=== PATIENT | female | born 1980 | race Caucasian/White ===

== ENCOUNTER 2018-11-19 18:08 | Emergency (ER) | payer BC ==
[2018-11-19] MEDS ORDERED: ALBUTEROL (0.5% CONCENTRATED) 2.5 MG/0.5 ML VIAL.NEB INH ONE (18:27)
[2018-11-19] MEDS ORDERED: IPRATROPIUM/ALBUTEROL (0.5MG/3MG) NEB INH ONE (18:27)
--- NOTE | 2018-11-19 18:38 | Emergency Department Record ---
History of Present Illness - General Chief Complaint: Cough Stated Complaint: COUGH Time Seen by Provider: 11/19/18 18:20 Source: Patient Mode of Arrival: Ambulatory Limitations: No limitations - History of Present Illness Initial Comments: The patient is here due to intermittent coughing, congestion and wheezing for 6- 7 weeks. She has been to the urgent care twice for it. The first time she was placed on a Zpak and the 2nd an inhaller and steroids and she was told she had asthma. Today the coughing and wheezing worsened so she came to the ER. The patient denies any CP, fever, pleuritic pain, sputum production, leg pain or swelling. She does not smoke and is not on OCP's. The patient had audible wheezing when she presented to the ED and received an Duoneb tx after being placed in the room. MD Complaint: Cough Onset/Timin -: Week(s) Severity: Moderate - Related Data Home Medications Medication Instructions Recorded Confirmed Last Taken Bupropion HCl [Wellbutrin Xl] 300 mg PO DAILY 11/19/18 11/19/18 11/18/18 Buspirone HCl [Buspar] 10 mg PO DAILY 11/19/18 11/19/18 11/18/18 Levothyroxine Sodium [Synthroid] 100 mcg PO DAILY 11/19/18 11/19/18 11/18/18 Previous Rx's Medication Instructions Recorded Prednisone [Prednisone 20Mg] 40 mg PO DAILY #8 tab 11/19/18 Allergies Allergy/AdvReac Type Severity Reaction Status Date / Time Penicillins Allergy HIVES Verified 11/19/18 18:19 Travel Screening - Travel/Exposure Within Last 30 Days Have you traveled within the last 30 days?: Yes Location Detail:: [place] - Travel/Exposure Within Last Year Have you traveled outside the [place] in the last year?: Yes Location Detail:: [place] - Additonal Travel Details Have you been exposed to anyone with a communicable illness?: No - Travel Symptoms Symptom Screening: None Review of Systems Constitutional: Denies: Chills, Fever Eyes: Denies: Eye discharge ENT: Reports: Congestion Respiratory: Reports: Cough, Dyspnea, Wheezes Cardiovascular: Denies: Arrhythmia, Chest pain Past Medical History - SOCIAL HISTORY Smoking Status: Never smoker Alcohol Use: None Drug Use: None - RESPIRATORY Hx Respiratory Disorders: Yes Hx Asthma: Yes (excercise induced) Hx Bronchitis: Yes - CARDIOVASCULAR Hx Cardio Disorders: No - NEURO Hx Neuro Disorders: No - GI Hx GI Disorders: No - Hx Genitourinary Disorders: No - ENDOCRINE Hx Endocrine Disorders: Yes Hx Diabetes: No Hx Thyroid Disease: Yes - MUSCULOSKELETAL Hx Musculoskeletal Disorders: No - PSYCH Hx Psych Problems: Yes Hx Depression: Yes - HEMATOLOGY/ONCOLOGY Hx Hematology/Oncology Disorders: No Family Medical History Any Significant Family History?: No Physical Exam - General General Appearance: Alert, Oriented x3, Cooperative, No acute distress - Head Head exam: Atraumatic, Normocephalic, Normal inspection - Eye Eye exam: Normal appearance, PERRL, EOMI - ENT Throat exam: Normal inspection. negative: Tonsillar erythema, Tonsillar exudate - Neck Neck exam: Normal inspection, Full ROM. negative: Lymphadenopathy, Tenderness - Respiratory Respiratory exam: Normal lung sounds bilaterally (The lungs are very clear bilaterally with no wheezing or rhonchi. The patient was examined AFTER a Duoneb tx.). negative: Accessory muscle use, Decreased breath sounds, Prolonged expiratory, Respiratory distress, Rhonchi, Stridor, Wheezes - Cardiovascular Cardiovascular Exam: Regular rate, Normal rhythm, Normal heart sounds. negative : Diastolic murmur, Systolic murmur - GI/Abdominal GI/Abdominal exam: Soft, Normal bowel sounds. negative: Tenderness - Extremities Extremities exam: Normal inspection, Full ROM, Normal capillary refill. negative: Calf tenderness, Pedal edema, Tenderness - Neurological Neurological exam: Alert. negative: Motor sensory deficit Course Vital Signs 11/19/18 11/19/18 18:11 18:21 Temperature 98.6 F Pulse Rate 124 H 105 H Respiratory 22 20 Rate Blood Pressure 152/86 Pulse Ox 98 99 - Reevaluation(s) Reevaluation #1: The patient is doing very well at this time and continues to feel back to normal. She states her wheezing and LEENA have resolved and she is feeling MUCH better. On exam her lungs are very clear with no wheezing or rhonchi and her HR is down to 90. I did discuss the neg xray and the need to see her PCP for PFT' s. It appears clear that she has a viral process so we will not prescribe an oral Abx. 11/19/18 19:12 11/19/18 19:16 Medical Decision Making - Data Complexity MDM Data: X-Ray Ordered and/or Reviewed - Radiology Data Radiology results: Report reviewed (CXR: Neg.) Disposition Disposition: Discharge Clinical Impression: Bronchospasm, acute Disposition: Home, Self-Care Condition: (2) Stable Instructions: Bronchospasm (ED) Additional Instructions: PLease continue your home inhaller and continue the Prednisone tomorrow. Please see your family doctor in 3 days for recheck and to schedule pulmonary function testing. Return to the ER for any worsening symptoms. Prescriptions: Prednisone [Prednisone 20Mg] 40 mg PO DAILY #8 tab Forms: Patient Portal Access Time of Disposition: 19:15 Quality - Quality Measures Quality Measures: N/A - Blood Pressure Screening View Details: Yes Does Patient Have Any of the Following: No Blood Pressure Classification: Pre-Hypertensive BP Reading Systolic Measurement: 116 Diastolic Measurement: 82 Screening for High Blood Pressure: < Pre-Hypertensive BP, F/U Documented > [ [id number]] Pre-Hypertensive Follow-up Interventions: Referral to alternative/primary care provider.
[2018-11-19] MEDS ORDERED: PREDNISONE 20 MG TAB PO ONE (18:57)
--- NOTE | 2018-11-22 13:01 | RADIOLOGY REPORT ---
EXAM: CHEST, TWO VIEWS HISTORY: COUGH TIMES SIX TO EIGHT WEEKS. TECHNIQUE: Two views of the chest were obtained. FINDINGS: The lungs are clear. The cardiac size is normal. No infiltrate, effusion, or parenchyma mass is seen. IMPRESSION: NORMAL CHEST. JOB NUMBER: [id number] MTDD
== END 2018-11-19 19:31 | disposition home or self-care (01) ==
LOC: ER 18:08
DX: J98.01 Acute bronchospasm (principal)
CPT/HCPCS: 99284; 99283; 71046; J7512